=== PATIENT | female | born 1950 | race Two or more races ===

== ENCOUNTER → 2017-08-13 16:40 | Outpatient (CLI) | payer OTHER | END | disposition home or self-care (01) | LOC: RAD 16:40 | DX: M21.611 Bunion of right foot (principal) ==

== ENCOUNTER 2017-10-01 09:29 | Outpatient (CLI) | payer OTHER | END 2017-10-01 09:44 | disposition home or self-care (01) | LOC: SONOGRAMA 09:29 | DX: M76.52 Patellar tendinitis, left knee (principal) ==

== ENCOUNTER 2020-11-06 15:51 | Outpatient (CLI) | payer OTHER | END 2020-11-06 16:12 | disposition home or self-care (01) | LOC: RAD 15:51 | PROVIDERS: ATTEND Family Medicine | DX: M77.41 Metatarsalgia, right foot (principal) ==

== ENCOUNTER → 2022-09-18 | Outpatient (CLI) | payer OTHER | END | disposition home or self-care (01) | LOC: RAD 16:05 | DX: M17.12 Unilateral primary osteoarthritis, left knee (principal) ==

== ENCOUNTER 2023-07-23 17:15 | Emergency (ER) | payer OTHER ==
[~2023-07-23] VITALS: Ht 162.6 cm; Wt 81.4 kg
[2023-07-23] MEDS ORDERED: SYNTHROID100 MCG PO (17:35)
[2023-07-23] MEDS ORDERED: GUAIFENESIN 200 MG/10 ML BLIST.PACK PO STA (19:15)
[2023-07-23 20:15] LABS: HEMATOCRIT 42.4 % (36.0-45.00); HEMOGLOBIN 14.5 g/dL (12.0-15.00); MEAN CORPUSCULAR HEMOGLOBIN 29.1 pg (27.00-32.0); MEAN CORPUSCULAR HGB CONC 34.3 g/dl (32.0-36.0); PLATELET COUNT 251 K/uL (150-450); RED BLOOD COUNT 4.99 M/uL (4.00-6.00); RED CELL DISTRIBUTION WIDTH 13.8 % (11.5-14.5)
== END 2023-07-23 22:01 | disposition home or self-care (01) ==
LOC: ER 17:16
PROVIDERS: General Practice
DX: R05.9 Cough, unspecified (principal); Z20.822 Contact with and (suspected) exposure to COVID-19

== ENCOUNTER 2023-09-06 04:44 | Emergency (ER) | payer OTHER ==
[~2023-09-06] VITALS: Ht 162.6 cm; Wt 78.0 kg
[~2023-09-06 04:44] MED LIST: SYNTHROID100 MCG PO
== END 2023-09-06 07:28 | disposition home or self-care (01) ==
LOC: ER 04:44
DX: S00.01XA Abrasion of scalp, initial encounter (principal); W18.39XA Other fall on same level, initial encounter; Y93.89 Activity, other specified; Y92.018 Other place in single-family (private) house as the place of occurrence of the external cause; Y99.9 Unspecified external cause status